=== PATIENT | female | born 1990 | race African-American/Black ===

== ENCOUNTER 2018-04-21 14:01 | Emergency (ER) | payer SELFPAY ==
[~2018-04-21] VITALS: Ht 172.7 cm; Wt 61.0 kg
[2018-04-21 14:36] VITALS: BP 118/71
== END 2018-04-21 16:20 | disposition home or self-care (01) ==
LOC: ER 14:01
DX: R21 Rash and other nonspecific skin eruption (principal); F17.210 Nicotine dependence, cigarettes, uncomplicated; F12.90 Cannabis use, unspecified, uncomplicated
CPT/HCPCS: 99283

== ENCOUNTER 2020-06-16 06:20 | Emergency (ER) | payer MEDICAID ==
[~2020-06-16] VITALS: Ht 172.7 cm; Wt 61.0 kg
[2020-06-16 06:21] VITALS: BP 128/81
== END 2020-06-16 07:36 | disposition left against medical advice (07) ==
LOC: ER 06:20
DX: R10.9 Unspecified abdominal pain (principal); Z53.21 Procedure and treatment not carried out due to patient leaving prior to being seen by health care provider

== ENCOUNTER 2025-06-12 16:05 | Emergency (ER) | payer MEDICAID ==
[~2025-06-12] VITALS: Ht 165.1 cm; Wt 65.0 kg
[2025-06-12 16:06] VITALS: O2SAT 98
[2025-06-12 16:22] VITALS: BP 127/73; PULSE 103; RESP 14; TEMP 36.6; O2SAT 99
== END 2025-06-12 17:00 | disposition left against medical advice (07) ==
LOC: ER 16:05
DX: S69.92XA Unspecified injury of left wrist, hand and finger(s), initial encounter (principal); S69.91XA Unspecified injury of right wrist, hand and finger(s), initial encounter; Z53.21 Procedure and treatment not carried out due to patient leaving prior to being seen by health care provider; X58.XXXA Exposure to other specified factors, initial encounter; Y93.89 Activity, other specified; Y92.89 Other specified places as the place of occurrence of the external cause; Y99.8 Other external cause status
CPT/HCPCS: 99281